=== PATIENT | female | born 1940 ===

== ENCOUNTER → 2018-03-18 | Outpatient (CLI) | payer OTHER ==
[~2018-03-18] MED LIST: FLONASE16 GM NS; OMEPRAZOLE40 MG PO; ZANTAC300 MG PO
== END | disposition home or self-care (01) ==
LOC: LAB 08:45
DX: I10 Essential (primary) hypertension (principal); E11.9 Type 2 diabetes mellitus without complications; E03.8 Other specified hypothyroidism; E78.2 Mixed hyperlipidemia

== ENCOUNTER 2018-05-11 09:07 | Outpatient (CLI) | payer OTHER ==
[~2018-05-11] VITALS: Ht 160 cm; Wt 54.4 kg
== END 2018-05-11 09:20 | disposition home or self-care (01) ==
LOC: OFIC 805 09:07
DX: J31.0 Chronic rhinitis (principal); J34.2 Deviated nasal septum; R13.19 Other dysphagia; K21.9 Gastro-esophageal reflux disease without esophagitis; H61.23 Impacted cerumen, bilateral

== ENCOUNTER → 2020-07-30 11:18 | Outpatient (CLI) | payer OTHER | END | disposition home or self-care (01) | LOC: LAB 11:18 | PROVIDERS: ATTEND Internal Medicine Gastroenterology | DX: R10.13 Epigastric pain (principal); D50.0 Iron deficiency anemia secondary to blood loss (chronic) ==